=== PATIENT | female | born 1985 | race African-American/Black ===

== ENCOUNTER 2020-09-22 08:55 | Emergency (ER) | payer OTHER ==
[2020-09-22 09:16] VITALS: BMI 29.2
[2020-09-22 10:06] LABS: HCG,QUALITATIVE URINE Positive
[2020-09-22 10:11] LABS: EPI CELLS >36 /uL (0-25.1); HYALINE CASTS 6 /uL (0-3.1); PH,URINE 5.5 (5.0-8.0); URINE APPEARANCE CLOUDY; URINE BACTERIA 2253 /uL (0-1359); URINE BILIRUBIN NEGATIVE (NEGATIVE); URINE COLOR YELLOW; URINE GLUCOSE (UA) NEGATIVE (NEGATIVE); URINE KETONE NEGATIVE (NEGATIVE); URINE LEUK ESTERASE 2+ (NEGATIVE); URINE NITRITE NEGATIVE (NEGATIVE); URINE PROTEIN TRACE (NEGATIVE); URINE RBC 27 /uL (0-23.9); URINE UROBILINOGEN 0.2 mg/dL (0.2-1.0); URINE WBC 188 /uL (0-25.8)
[2020-09-22 10:53] LABS: BASO % 0.4 % (0-2.0); EOS % 1.1 % (0-4.5); HEMATOCRIT 42.2 % (32.4-45.2); HEMOGLOBIN 14.3 GM/dL (10.7-15.3); MCH 29.5 pg (25.7-33.7); MEAN CELL VOLUME 86.7 fl (80-96); MEAN PLT VOLUME 8.5 fl (7.5-11.1); MONO % 5.3 % (3.8-10.2); NEUT % 73.2 % (42.8-82.8); PLATELET COUNT 272 K/MM3 (134-434); RBC 4.87 M/mm3 (3.60-5.2); RDW 13.6 % (11.6-15.6); WHITE BLOOD COUNT 5.4 K/mm3 (4.0-10.0)
[2020-09-22 11:18] LABS: POTASSIUM 4.1 mmol/L (3.5-5.1)
[2020-09-22 11:20] LABS: CALCIUM 9.7 mg/dL (8.5-10.1)
[2020-09-22 11:21] LABS: ALBUMIN 3.9 g/dl (3.4-5.0); BLOOD UREA NITROGEN 3.8 mg/dL (7-18)
[2020-09-22 11:24] LABS: CREATININE 0.8 mg/dL (0.55-1.3)
[2020-09-22 11:25] LABS: BILIRUBIN,TOTAL 0.3 mg/dL (0.2-1)
[2020-09-22 13:13] VITALS: BP 121/76; PULSE 93; TEMP 98.5
== END 2020-09-22 15:00 | disposition home or self-care (01) ==
LOC: JER 08:55
DX: O20.8 Other hemorrhage in early pregnancy (principal); Z3A.01 Less than 8 weeks gestation of pregnancy
CPT/HCPCS: 36415; 76817-TC; 80053; 81003; 84702; 84703; 85025; 86850; 86900; 86901; 87086; 87186; 99284-25